=== PATIENT | female | born 1960 | race Caucasian/White ===

== ENCOUNTER → 2017-05-07 | Outpatient (CLI) | payer BC ==
--- NOTE | 2017-05-07 10:37 | DIAGNOSTIC IMAGING REPORT ---
LEFT KNEE 3 VIEWS CLINICAL HISTORY: LEFT KNEE PAIN trauma. Pain. COMPARISON: None. DISCUSSION: Nondisplaced fracture lateral patellar . Mild peripatellar soft tissue edema. Small joint effusion. Minimal degenerative change medial and lateral joint compartments. IMPRESSION: Nondisplaced vertical fracture lateral patella. Electronically signed by: Joe Palomo M.D. 05/07/2017 10:36 AM Dictated Date/Time: 05/07/2017 10:35 AM
== END | disposition home or self-care (01) ==
LOC: C.RADBC 10:03
PROVIDERS: ATTEND Family Medicine
DX: M25.562 Pain in left knee (principal)

== ENCOUNTER → 2017-09-30 | Outpatient (CLI) | payer BC ==
--- NOTE | 2017-10-01 15:29 | MAMMOGRAPHY REPORT ---
BILATERAL DIGITAL SCREENING MAMMOGRAM TOMOSYNTHESIS WITH CAD: 09/30/2017 CLINICAL HISTORY: Routine screening. The patient reports occasional left upper outer quadrant tender ness. TECHNIQUE: Breast tomosynthesis in addition to standard 2D mammography was performed. Current study was also evaluated with a Computer Aided Detection (CAD) system. COMPARISON: Comparison is made to exams dated: 02/06/2015 ultrasound, 02/06/2015 mammogram, 01/18/2015 m ammogram, 11/04/2012 mammogram, 11/03/2011 mammogram, and 10/31/2010 mammogram - [facility]. BREAST COMPOSITION: The tissue of both breasts is extremely dense, which lowers the sensitivity of m ammography. FINDINGS: No suspicious masses, calcifications, or areas of architectural distortion are noted in ei ther breast. There has been no significant interval change compared to prior exams. Bilateral benign -appearing calcifications are not significantly changed. IMPRESSION: ACR BI-RADS CATEGORY 2: BENIGN There is no mammographic evidence of malignancy. A 1 year screening mammogram is recommended. Also r ecommend clinical follow-up for intermittent left breast tenderness. The patient will receive writte n notification of the results. Approximately 10% of breast cancers are not detected with mammography. A negative mammographic report should not delay biopsy if a clinically suggestive mass is present. Ai Perry M.D. 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
== END | disposition home or self-care (01) ==
LOC: C.MAMM 15:02
PROVIDERS: ATTEND Family Medicine
DX: Z12.31 Encounter for screening mammogram for malignant neoplasm of breast (principal)